=== PATIENT | male | born 1945 | race Caucasian/White ===

== ENCOUNTER 2023-03-18 05:11 | Inpatient (IN) | payer MEDICARE, BC ==
--- NOTE | 2023-03-18 05:32 | ED ---
SOB HPI - General Chief Complaint: Shortness of Breath Stated Complaint: Abdominal Pain Time Seen by Provider: 03/18/23 05:23 Source: patient Mode of arrival: EMS Limitations: no limitations - History of Present Illness Initial Comments: Patient 77-year-old man with history of coronary disease as well as moderate anemia. Most of the history is obtained from family who he lives with. They state that he had not been feeling very well area he had gone up to take a shower and then become much more acutely short of breath. That he has been somewhat short of breath and it was suspected that there was a contribution from anemia, his last hemoglobin was in the eights. The patient also reportedly has some coronary artery disease and having consultation related to possible coronary bypass. The patient had received fentanyl from EMS. MD Complaint: shortness of breath Onset/Timin -: hour(s) Consistency: constant Improves With: nothing Worsens With: nothing Treatments Prior to Arrival: oxygen, other - Related Data Home Medications Medication Instructions Recorded Confirmed Albuterol Inhaler [Ventolin Hfa 1 - 2 puff INHALATION RT-Q6H PRN 03/18/23 03/18/23 Inhaler] Aspirin 325 mg PO HS 03/18/23 03/18/23 Bumetanide [Bumex] 1 mg PO DAILY 03/18/23 03/18/23 Clopidogrel [Plavix] 75 mg PO DAILY 03/18/23 03/18/23 Doxycycline [Vibramycin] 100 mg PO BID 03/18/23 03/18/23 Ferrous Sulfate [Feosol] 325 mg PO DAILY 03/18/23 03/18/23 HYDROcodone/APAP 7.5-325MG [[place] 1 tab PO Q6HR PRN 03/18/23 03/18/23 7.5-325] Isosorbide Mononitrate ER [Imdur] 30 mg PO DAILY 03/18/23 03/18/23 Metoprolol Succinate [Toprol XL] 50 mg PO HS 03/18/23 03/18/23 Multivitamins, Thera [Multivitamin 1 tab PO HS 03/18/23 03/18/23 (formulary)] [place]-3/Dha/Epa/Fish Oil [Fish Oil 1 cap PO BID 03/18/23 03/18/23 1,000 mg Softgel] Rosuvastatin [Crestor] 10 mg PO HS 03/18/23 03/18/23 Spironolactone 25 mg PO DAILY 03/18/23 03/18/23 Ubidecarenone [Co Q-10] 300 mg PO DAILY 03/18/23 03/18/23 glipiZIDE XL [Glucotrol Xl] 5 mg PO HS 03/18/23 03/18/23 metFORMIN HCL [Glucophage] 500 mg PO HS 03/18/23 03/18/23 Allergies Allergy/AdvReac Type Severity Reaction Status Date / Time Penicillins Allergy Rash/Hives Verified 03/18/23 06:40 Review of Systems ROS Statement: Those systems with pertinent positive or pertinent negative responses have been documented in the HPI. ROS Other: All systems not noted in ROS Statement are negative. Past Medical History Past Medical History: Unable to Obtain, GI Bleed History of Any Multi-Drug Resistant Organisms: None Reported Past Surgical History: Unable to Obtain Past Psychological History: No Psychological Hx Reported Smoking Status: Current some day smoker Past Alcohol Use History: None Reported Past Drug Use History: None Reported General Exam Limitations: no limitations General appearance: alert, in distress Head exam: Present: atraumatic, normocephalic Eye exam: Present: normal appearance Respiratory exam: Present: respiratory distress, accessory muscle use. Absent: wheezes, rales, rhonchi, stridor, decreased breath sounds Cardiovascular Exam: Present: regular rate, normal rhythm, normal heart sounds. Absent: systolic murmur, diastolic murmur, rubs, gallop GI/Abdominal exam: Present: soft. Absent: distended, tenderness, guarding, rebound, rigid, mass Extremities exam: Present: normal inspection, normal capillary refill. Absent: pedal edema, calf tenderness Neurological exam: Present: alert Skin exam: Present: warm, dry, intact, pallor. Absent: rash Course Vital Signs 03/18/23 03/18/23 03/18/23 05:17 05:23 05:29 Temperature 96.9 F L Pulse Rate 99 Respiratory 30 H 28 H Rate Blood Pressure 107/91 O2 Sat by Pulse 95 91 L Oximetry Fraction of Inspired Oxygen (FIO2) 03/18/23 03/18/23 03/18/23 05:30 05:35 05:40 Temperature Pulse Rate 99 98 Respiratory 34 H 30 H Rate Blood Pressure 112/72 115/82 O2 Sat by Pulse 91 L 68 L Oximetry Fraction of 100 Inspired Oxygen (FIO2) 03/18/23 03/18/23 03/18/23 05:50 06:05 06:07 Temperature Pulse Rate 102 H Respiratory 34 H 38 H 36 H Rate Blood Pressure 109/50 O2 Sat by Pulse 50 L Oximetry Fraction of Inspired Oxygen (FIO2) 03/18/23 03/18/23 03/18/23 06:09 06:30 06:35 Temperature Pulse Rate 93 90 Respiratory 38 H 17 18 Rate Blood Pressure 113/65 97/60 O2 Sat by Pulse Oximetry Fraction of 100 Inspired Oxygen (FIO2) 03/18/23 03/18/23 03/18/23 06:40 06:45 06:50 Temperature 95.4 F L 96.6 F L 97.2 F L Pulse Rate 85 90 88 Respiratory 16 17 17 Rate Blood Pressure 73/29 102/38 94/36 O2 Sat by Pulse Oximetry Fraction of Inspired Oxygen (FIO2) 03/18/23 03/18/23 03/18/23 07:00 07:15 07:29 Temperature 97.3 F L Pulse Rate 86 82 Respiratory 17 17 Rate Blood Pressure 90/41 98/25 O2 Sat by Pulse Oximetry Fraction of 100 Inspired Oxygen (FIO2) 03/18/23 03/18/23 03/18/23 07:35 07:40 08:11 Temperature Pulse Rate 87 86 Respiratory 18 22 Rate Blood Pressure 85/25 79/47 O2 Sat by Pulse Oximetry Fraction of 100 Inspired Oxygen (FIO2) 03/18/23 03/18/23 03/18/23 08:20 08:30 08:35 Temperature Pulse Rate 87 84 76 Respiratory 22 21 22 Rate Blood Pressure 97/54 97/54 82/37 O2 Sat by Pulse 53 L 60 L 54 L Oximetry Fraction of Inspired Oxygen (FIO2) 03/18/23 03/18/23 03/18/23 08:37 08:40 08:45 Temperature Pulse Rate 82 77 86 Respiratory 18 20 20 Rate Blood Pressure 82/37 82/37 81/42 O2 Sat by Pulse 58 L 83 L 65 L Oximetry Fraction of 60 Inspired Oxygen (FIO2) 03/18/23 03/18/23 03/18/23 08:55 09:00 09:02 Temperature 95.9 F L Pulse Rate 85 82 Respiratory 20 20 Rate Blood Pressure 82/48 84/52 O2 Sat by Pulse 79 L 76 L Oximetry Fraction of Inspired Oxygen (FIO2) 03/18/23 03/18/23 03/18/23 09:05 09:15 09:20 Temperature Pulse Rate 80 82 85 Respiratory 18 19 19 Rate Blood Pressure 91/28 96/37 90/35 O2 Sat by Pulse 75 L 78 L Oximetry Fraction of Inspired Oxygen (FIO2) 03/18/23 03/18/23 03/18/23 09:30 09:45 10:15 Temperature Pulse Rate 88 87 89 Respiratory 18 18 19 Rate Blood Pressure 90/35 102/33 106/39 O2 Sat by Pulse 74 L 74 L 72 L Oximetry Fraction of Inspired Oxygen (FIO2) 03/18/23 10:35 Temperature Pulse Rate Respiratory Rate Blood Pressure O2 Sat by Pulse Oximetry Fraction of 60 Inspired Oxygen (FIO2) - Reevaluation(s) Reevaluation #1: 03/18/23 08:59 I phoned the patient's primary care clinic (Dr. Alonso Mishra) at [phone] and they stated they would fax an ECG if one is available. Procedures - Central Line Placement Right Femoral Consent Obtained: verbal consent (From the patient's family) Patient Placed on Monitor/Pulse Ox: Yes MD Prep: mask, gown, gloves Central Line Prep: Chlorhexidine scrub Local Anesthesia Used: Lidocaine 1% Ultrasound Used for Placement: Yes Central Line Lumen Inserted: triple Central Line Position: good blood return, all ports aspirated, flushed, capped, sutured in place with 3-0 nylon Dressing Applied: Tegaderm Patient Tolerated Procedure: well, no complications Complications: none - Intubation Sedative: Etomidate Paralytic: Succinylcholine Laryngoscope: Melissa Size: 3 Assist Device Used: fiber optic device ET Tube Size: 8 Tube Secured Depth (cm): 25 Tube Secured Location: lips Tube Placement Confirmation: visualized tube passing through cords, equal breath sounds bilaterally, no breath sounds over epigastrium, confirmation by capnometry Patient Tolerated Procedure: well Intubation Complications: none Medical Decision Making - Medical Decision Making This patient is 77-year-old man brought for worsening respiratory status at home. Initially the patient is not able to provide much history due to what appears to be acute delirium and dyspnea. The patient's family subsequently arrived and stated that he over the past 3 or 4 days has stopped taking much by mouth. They state that he has lost his appetite and nothing tastes good to him. He has subsequently become more short of breath tonight resulting in him calling an ambulance. They provided history that the patient is currently having workup for probable CABG through [facility]. The patient continued to be very tachypnea And was tiring and to reduce work of breathing the family consented to intubation. See the procedure note. The patient following intubation then became hypotensive and after discussion they did consent for central line placement to facilitate fluids and pressors. Case discussed with admitting physician and with elderly sitter and with the naval inspector and their treatment recommendations are incorporated. Was pt. sent in by a medical professional or institution (, PA, DIGITAL RESEARCH ANALYST, urgent care, hospital, or longterm...) When possible be specific @ -[No] Did you speak to anyone other than the patient for history (EMS, parent, family, police, friend...)? What history was obtained from this source @ -[He has family did give history as well as EMS Did you review nursing and triage notes (agree or disagree)? Why? @ -[I reviewed and agree with nursing and triage notes] Were old charts reviewed (outside hosp., previous admission, EMS record, old EKG, old radiological studies, urgent care reports/EKG's, longterm records)? Report findings @ -[No old charts were reviewed] Differential Diagnosis (chest pain, altered mental status, abdominal pain women, abdominal pain men, vaginal bleeding, weakness, fever, dyspnea, syncope, headache, dizziness, GI bleed, back pain, seizure, CVA, palpatations, mental health, musculoskeletal)? @ -[Differential Dyspnea: Coronary syndrome, arrhythmia, tamponade, asthma, COPD, pulmonary embolism, pneumonia, pneumothorax, pulmonary effusion, anaphylaxis, diabetic ketoacidosis, flailed chest, pulmonary contusion, diaphragmatic rupture, anemia, neuromuscular, this is not meant to be an all-inclusive list. EKG interpreted by me (3pts min.). @ -[I interpreted As above] X-rays interpreted by me (1pt min.). @ -[I interpreted as above CT interpreted by me (1pt min.). @ -[None done] U/S interpreted by me (1pt. min.). @ -[None done] What testing was considered but not performed or refused? (CT, X-rays, U/S, labs)? Why? @ -[None] What meds were considered but not given or refused? Why? @ -[None] Did you discuss the management of the patient with other professionals (professionals i.e. , PA, DIGITAL RESEARCH ANALYST, lab, RT, psych nurse, high school social studies teacher, commercial lease administrator, teacher, disability hearing officer, skilled nursing case manager)? Give summary @ -[This case was discussed with the admitting service and with specialists as above Was smoking cessation discussed for >3mins.? @ -[No] Was critical care preformed (if so, how long)? @ -[Yes 50 minutes Were there social determinants of health that impacted care today? How? (Homelessness, low income, unemployed, alcoholism, drug addiction, transportation, low edu. Level, literacy, decrease access to med. care, senior living, rehab)? @ -[No] Was there de-escalation of care discussed even if they declined (Discuss DNR or withdrawal of care, Hospice)? DNR status @ -[No] What co-morbidities impacted this encounter? (DM, HTN, Smoking, COPD, CAD, Cancer, CVA, ARF, Chemo, Hep., AIDS, mental health diagnosis, sleep apnea, morbid obesity)? @ -[None] Was patient admitted / discharged? Hospital course, mention meds given and route, prescriptions, significant lab abnormalities, going to OR and other pertinent info. @ -[See above Undiagnosed new problem with uncertain prognosis? @ -[No] Drug Therapy requiring intensive monitoring for toxicity (Heparin, Nitro, Insulin, Cardizem)? @ -[No] Were any procedures done? @ -[No] Diagnosis/symptom? @ -[COVID-19 infection Acute respiratory failure Anemia Metabolic acidosis Acute kidney injury Acute, or Chronic, or Acute on Chronic? @ -[Acute Uncomplicated (without systemic symptoms) or Complicated (systemic symptoms)? @ -[Complicated by Dyspnea and delirium Side effects of treatment? @ -[No] Exacerbation, Progression, or Severe Exacerbation? @ -[No] Poses a threat to life or bodily function? How? (Chest pain, [place], [place], pneumonia, PE, COPD, DKA, ARF, appy, cholecystitis, CVA, Diverticulitis, Homicidal, Suicidal, threat to staff... and all critical care pts) @ -[Yes there is risk of morbidity and mortality associated with respiratory failure - Lab Data Result diagrams: 03/19/23 00:50 03/19/23 00:50 Lab Results 03/18/23 03/18/23 03/18/23 Range/Units 05:25 05:25 05:25 WBC 18.8 H (3.8-10.6) k/uL RBC 2.13 L (4.30-5.90) m/uL Hgb 8.0 L (13.0-17.5) gm/dL Hct 26.9 L (39.0-53.0) % MCV 126.3 H (80.0-100.0) fL MCH 37.6 H (25.0-35.0) pg MCHC 29.8 L (31.0-37.0) g/dL RDW 16.8 H (11.5-15.5) % Plt Count 632 H (150-450) k/uL MPV 10.5 Neutrophils % (Manual) 68 % Band Neuts % (Manual) 2 % Lymphocytes % (Manual) 25 % Monocytes % (Manual) 5 % Neutrophils # (Manual) 13.10 H (1.3-7.7) k/uL Lymphocytes # (Manual) 4.70 (1.0-4.8) k/uL Monocytes # (Manual) 0.94 (0-1.0) k/uL Nucleated RBCs 0 (0-0) /100 WBC Polychromasia Present Hypochromasia Marked Anisocytosis Slight Macrocytosis Marked A PT 12.9 H (10.0-12.5) sec INR 1.2 H (<1.2) APTT 19.7 L (22.0-30.0) sec Sodium 137 (137-145) mmol/L Potassium 5.2 H (3.5-5.1) mmol/L Chloride 100 (98-107) mmol/L Carbon Dioxide <5 L* (22-30) mmol/L Anion Gap mmol/L BUN 30 H (9-20) mg/dL Creatinine 2.16 H (0.66-1.25) mg/dL Est GFR (CKD-EPI)AfAm 33 (>60 ml/min/1.73 sqM) Est GFR (CKD-EPI)NonAf 28 (>60 ml/min/1.73 sqM) Glucose 340 H (74-99) mg/dL Lactic Ac Sepsis Rflx Plasma Lactic Acid Wilber (0.7-2.0) mmol/L Calcium 9.7 (8.4-10.2) mg/dL Total Bilirubin 0.9 (0.2-1.3) mg/dL AST 107 H (17-59) U/L ALT 71 H (4-49) U/L Alkaline Phosphatase 59 (38-126) U/L Troponin I (0.000-0.034) ng/mL NT-Pro-B Natriuret Pep 54272 pg/mL Total Protein 6.4 (6.3-8.2) g/dL Albumin 4.0 (3.5-5.0) g/dL Influenza Type A (PCR) (Not Detectd) Influenza Type B (PCR) (Not Detectd) RSV (PCR) (Not Detectd) SARS-CoV-2 (PCR) (Not Detectd) Blood Type Blood Type Confirm Blood Type Recheck Bld Type Recheck Status Antibody Screen Crossmatch Spec Expiration Date 03/18/23 03/18/23 03/18/23 Range/Units 05:25 05:25 05:25 WBC (3.8-10.6) k/uL RBC (4.30-5.90) m/uL Hgb (13.0-17.5) gm/dL Hct (39.0-53.0) % MCV (80.0-100.0) fL MCH (25.0-35.0) pg MCHC (31.0-37.0) g/dL RDW (11.5-15.5) % Plt Count (150-450) k/uL MPV Neutrophils % (Manual) % Band Neuts % (Manual) % Lymphocytes % (Manual) % Monocytes % (Manual) % Neutrophils # (Manual) (1.3-7.7) k/uL Lymphocytes # (Manual) (1.0-4.8) k/uL Monocytes # (Manual) (0-1.0) k/uL Nucleated RBCs (0-0) /100 WBC Polychromasia Hypochromasia Anisocytosis Macrocytosis PT (10.0-12.5) sec INR (<1.2) APTT (22.0-30.0) sec Sodium (137-145) mmol/L Potassium (3.5-5.1) mmol/L Chloride (98-107) mmol/L Carbon Dioxide (22-30) mmol/L Anion Gap mmol/L BUN (9-20) mg/dL Creatinine (0.66-1.25) mg/dL Est GFR (CKD-EPI)AfAm (>60 ml/min/1.73 sqM) Est GFR (CKD-EPI)NonAf (>60 ml/min/1.73 sqM) Glucose (74-99) mg/dL Lactic Ac Sepsis Rflx Plasma Lactic Acid Wil[place] 19.6 H* (0.7-2.0) mmol/L Calcium (8.4-10.2) mg/dL Total Bilirubin (0.2-1.3) mg/dL AST (17-59) U/L ALT (4-49) U/L Alkaline Phosphatase (38-126) U/L Troponin I 1.890 H* (0.000-0.034) ng/mL NT-Pro-B Natriuret Pep pg/mL Total Protein (6.3-8.2) g/dL Albumin (3.5-5.0) g/dL Influenza Type A (PCR) Not Detected (Not Detectd) Influenza Type B (PCR) Not Detected (Not Detectd) RSV (PCR) Not Detected (Not Detectd) SARS-CoV-2 (PCR) Detected A (Not Detectd) Blood Type Blood Type Confirm Blood Type Recheck Bld Type Recheck Status Antibody Screen Crossmatch Spec Expiration Date 03/18/23 03/18/23 03/18/23 Range/Units 05:25 05:30 06:17 WBC (3.8-10.6) k/uL RBC (4.30-5.90) m/uL Hgb (13.0-17.5) gm/dL Hct (39.0-53.0) % MCV (80.0-100.0) fL MCH (25.0-35.0) pg MCHC (31.0-37.0) g/dL RDW (11.5-15.5) % Plt Count (150-450) k/uL MPV Neutrophils % (Manual) % Band Neuts % (Manual) % Lymphocytes % (Manual) % Monocytes % (Manual) % Neutrophils # (Manual) (1.3-7.7) k/uL Lymphocytes # (Manual) (1.0-4.8) k/uL Monocytes # (Manual) (0-1.0) k/uL Nucleated RBCs (0-0) /100 WBC Polychromasia Hypochromasia Anisocytosis Macrocytosis PT (10.0-12.5) sec INR (<1.2) APTT (22.0-30.0) sec Sodium (137-145) mmol/L Potassium (3.5-5.1) mmol/L Chloride (98-107) mmol/L Carbon Dioxide (22-30) mmol/L Anion Gap mmol/L BUN (9-20) mg/dL Creatinine (0.66-1.25) mg/dL Est GFR (CKD-EPI)AfAm (>60 ml/min/1.73 sqM) Est GFR (CKD-EPI)NonAf (>60 ml/min/1.73 sqM) Glucose (74-99) mg/dL Lactic Ac Sepsis Rflx Y Plasma Lactic Acid Wilber (0.7-2.0) mmol/L Calcium (8.4-10.2) mg/dL Total Bilirubin (0.2-1.3) mg/dL AST (17-59) U/L ALT (4-49) U/L Alkaline Phosphatase (38-126) U/L Troponin I (0.000-0.034) ng/mL NT-Pro-B Natriuret Pep pg/mL Total Protein (6.3-8.2) g/dL Albumin (3.5-5.0) g/dL Influenza Type A (PCR) (Not Detectd) Influenza Type B (PCR) (Not Detectd) RSV (PCR) (Not Detectd) SARS-CoV-2 (PCR) (Not Detectd) Blood Type A Positive Blood Type Confirm A Positive Blood Type Recheck No Previous Record Bld Type Recheck Status CABO Indicated Antibody Screen NEGATIVE Crossmatch See Detail Spec Expiration Date 03/21/20232329 - EKG Data -: EKG Interpreted by Me EKG shows normal: sinus rhythm, axis (Normal), intervals (ER her vital 133 ms, QTC 428 ms, both normal. QRS duration 134 ms, prolonged), QRS complexes (There is an intraventricular conduction delay.) Rate: normal (Rate 98 bpm) Critical Care Time Critical Care Time: Yes (50 minutes) Disposition Clinical Impression: COVID-19, Sepsis, Lactic acidosis, NSTEMI (non-ST elevated myocardial infarction) Disposition: ADMITTED IP TO THIS HOSP Condition: Critical Is patient prescribed a controlled substance at d/c from ED?: No
[2023-03-18 05:37] LABS: Anisocytosis Slight; HCT 26.9 % (39.0-53.0); Hypochromasia Marked; MCH 37.6 pg (25.0-35.0); MCHC 29.8 g/dL (31.0-37.0); MCV 126.3 fL (80.0-100.0); Macrocytosis Marked; Mean Platelet Volume 10.5; Platelet Count 632 k/uL (150-450); RBC 2.13 m/uL (4.30-5.90); RDW 16.8 % (11.5-15.5); WBC 18.8 k/uL (3.8-10.6)
[2023-03-18] MEDS ORDERED: LORazepam 2 MG/ML INJ IV STA (05:40)
[2023-03-18 05:47] LABS: ALT 71 U/L (4-49); AST 107 U/L (17-59); African American GFR (CKD) 33 (>60 ml/min/1.73 sqM); Alkaline Phosphatase 59 U/L (38-126); Blood Urea Nitrogen 30 mg/dL (9-20); Calcium 9.7 mg/dL (8.4-10.2); Chloride 100 mmol/L (98-107); Glucose 340 mg/dL (74-99); Non-African American GFR(CKD) 28 (>60 ml/min/1.73 sqM); Potassium 5.2 mmol/L (3.5-5.1); Sodium 137 mmol/L (137-145); Total Bilirubin 0.9 mg/dL (0.2-1.3); Total Protein 6.4 g/dL (6.3-8.2)
[2023-03-18 05:57] LABS: NT-Pro-B-Type Natriuretic Pept 15300 pg/mL
[2023-03-18] MEDS: NALOXONE 0.4 MG/ML 1 ML VIAL IVP PRN ×3 (06:05→06:09)
[2023-03-18 06:18] LABS: Carbon Dioxide <5 mmol/L (22-30)
[2023-03-18] MEDS ORDERED: SUCCINYLCHOLINE CHLORIDE 200 MG/10 ML VIAL IV STA (06:19)
[2023-03-18] MEDS ORDERED: ETOMIDATE 2 MG/ML 10 ML VIAL IVP STA (06:19)
[2023-03-18 06:26] LABS: INR 1.2 (<1.2); Prothrombin Time 12.9 sec (10.0-12.5)
[2023-03-18] MEDS ORDERED: INSULIN REGULAR 100 UNIT/ML VIAL (IV) SQ STA (06:43)
[2023-03-18] MEDS ORDERED: NOREPINEPHRINE 4 MG in SODIUM CHLORIDE 0.9% 250 ML IV ONE (06:44)
[2023-03-18 06:45] LABS: Partial Thromboplastin Time 19.7 sec (22.0-30.0)
[2023-03-18] MEDS ORDERED: SODIUM CHLORIDE 0.9% 2,000 ML IV ONE (07:00)
--- NOTE | 2023-03-18 07:17 | XR ---
EXAM: XR Chest, 1 View CLINICAL HISTORY: ITS.REASON XR Reason: difficulty breathing TECHNIQUE: Frontal view of the chest. COMPARISON: No relevant prior studies available. FINDINGS: Lungs: Patchy airspace opacities throughout the lungs bilaterally. Pleural space: Unremarkable. No pneumothorax. Heart: Prominent cardiomegaly. Mediastinum: Normal mediastinal contour. Bones/joints: Grossly Unremarkable. Tubes, lines and devices: Endotracheal tube tip approximately 4 cm above the zurdo, satisfactory position. Enteric feeding tube terminates below the infra aspect of the film. IMPRESSION: Endotracheal tube tip approximately 4 cm above the zurdo, satisfactory position. Patchy airspace opacities throughout the lungs bilaterally. Correlation for acute infection and follow-up to resolution recommended.
[2023-03-18] MEDS: NOREPINEPHRINE 32 MG in SODIUM CHLORIDE 0.9% 218 ML IV SCH ×2 (07:18→17:09)
--- NOTE | 2023-03-18 07:32 | XR ---
EXAM: XR Chest, 1 View CLINICAL HISTORY: ITS.REASON XR Reason: intubation TECHNIQUE: Frontal view of the chest. COMPARISON: No relevant prior studies available. FINDINGS: Lungs: Patchy lower lobe airspace opacities. Pleural space: Unremarkable. No pneumothorax. Heart: Moderate cardiomegaly. Mediastinum: Normal mediastinal contour. Bones/joints: Grossly Unremarkable. Tubes, lines and devices: Endotracheal tube approximately 4.5 cm above the zurdo, satisfactory position. Enteric feeding tube terminates below the inferior aspect of the film. IMPRESSION: Endotracheal tube approximately 4.5 cm above the zurdo, satisfactory position. Moderate cardiomegaly and patchy lower lobe airspace opacities. Unclear whether related to infection, edema or inflammation. Clinical correlation and follow-up to resolution recommended.
[2023-03-18] MEDS ORDERED: HEPARIN SODIUM 1,000 UN/ML (10ML VL) IV PRN (08:20)
[2023-03-18] MEDS ORDERED: HEPARIN SODIUM 1,000 UN/ML (10ML VL) IV ONE (08:20)
[2023-03-18] MEDS ORDERED: HEPARIN SOD,PORK IN 0.45% NACL 25,000 UNIT in 0.45% NACL 1 250ML.BAG IV SCH (08:30)
--- NOTE | 2023-03-18 08:32 | CT ---
EXAMINATION TYPE: CT brain wo con CT DLP: 1271.4 mGycm, Automated exposure control for dose reduction was used. DATE OF EXAM: 03/18/2023 8:15 AM COMPARISON: MRI brain 09/29/2013. CLINICAL INDICATION:Male, 77 years old with history of altered mental status, AMS TECHNIQUE: Brain: Axial CT images of the brain were obtained with coronal and sagittal reformats created and rev iewed. Contrast used: None. Oral contrast used: None. FINDINGS: Extra-axial spaces: No abnormal extra-axial fluid collections. Ventricular system: Appear dilated in proportion to the degree of cerebral atrophy. Cerebral parenchyma: No increased attenuation to suggest acute intraparenchymal hemorrhage. The gra y-white matter interface appears maintained. Mild/moderate generalized brain atrophy. Scattered hyp oattenuating areas are seen within the cerebral white matter, nonspecific but most often seen with ch ronic microvascular ischemic changes; mild/moderate in degree. Small vague area of hypoattenuation i nvolving the right parietal cortex and subcortical white matter corresponds to previous T2 FLAIR sign al abnormality, suggestive of remote infarct/insult. Cerebellum: No acute abnormality. Mass effect: No evidence of mass effect or midline shift. Intracranial vasculature: Atherosclerotic calcifications of the larger arteries near the skull base. Soft tissues: Normal. Visualized orbits: Orbital contents appear grossly intact. Senile calcific scleral plaques are pres ent. There has likely been previous lens surgery on the left. No current findings to correlate with the small enhancing lesion lateral to the left globe seen on prior MRI. Calvarium/osseous structures: No evidence of calvarial fracture. Paranasal sinuses and mastoid air cells: Moderate to severe mucosal thickening of the maxillary sinus es, with probably superimposed fluid on the right more than left. Scattered mucosal thickening of the ethmoid air cells. Frontal sinuses and mastoid air cells are clear. MRI is more sensitive for detecting acute processes such as infarct, and may be considered if clinica lly warranted. IMPRESSION: 1. No CT evidence of an acute intracranial abnormality. 2. Atrophy and chronic microvascular ischemic white matter changes. Remote small infarct right parie sharda lobe. 3. Paranasal sinus disease, could be acute on chronic.
[2023-03-18 08:35] LABS: ABG Base Excess -15.8 mmol/L; ABG HCO3 13 mmol/L (21-25); ABG PCO2 34 mmHg (35-45); ABG PO2 >400 mmHg (83-108); ABG TCO2 14 mmol/L (19-24)
[2023-03-18 08:39] LABS: ABG PH 7.18 (7.35-7.45)
[2023-03-18] MEDS: LACTATED RINGERS 1,000 ML IV SCH ×3 (08:41→20:59)
[2023-03-18] MEDS ORDERED: SODIUM CHLORIDE 0.9% 1,000 ML IV ONE (08:55)
[2023-03-18] MEDS ORDERED: FAMOTIDINE 20 MG/2 ML VIAL IV SCH (09:00)
[2023-03-18] MEDS ORDERED: SODIUM BICARB 8.4% 50 ML SYR (1 MEQ/ML) IV STA ×3 (09:18→20:32)
[2023-03-18] MEDS ORDERED: VASOPRESSIN 60 UNIT in SODIUM CHLORIDE 0.9% 150 ML IV SCH (09:45)
[2023-03-18 09:51] LABS: Band Neutrophils % 2 %; Monocytes # (M) 0.94 k/uL (0-1.0); Neutrophils % (M) 68 %; Nucleated Red Blood Cells 0 /100 WBC (0-0); Total Cells Counted 100
[2023-03-18 09:53] LABS: Polychromasia Present
[2023-03-18 10:51] LABS: Glucose,Whole Blood 99 mg/dL (70-110)
--- NOTE | 2023-03-18 10:55 | P.HPIM ---
History of Present Illness This is a pleasant 77 years old male with unknown past medical history. Presents because of severe shortness of breath with some discomfort and pain in his old but he felt like it cramps, after he was trying to take a shower Further information is limited because of the patient condition On admission patient was hypoxic and has to be intubated. His saturation was 91% on 4 L oxygen and admissions with a breathing rate 30-34/m Also patient became hypotensive after intubation and central line placed with fluids provided. Also patient has to be placed on pressors. First Levophed and currently vasopressin is going to be added. Labs were reviewed WBCs elevated 18,000, hemoglobin 8, platelets 632k Creatinine elevated 2.1 PH was 7.1, pCO2 low 14, HCO3 low 13 Lactic acid elevated 19.6 Troponin is elevated at 1.8 [place] 98[address]. Covid is positive,Influenza A and type B, RSV, are undetected Chest x-ray showing bilateral opacity suspicious for pneumonia CT of the brain is negative for acute process. EKG showing normal sinus rhythm at [address] depression and V4-V5 and the 23 and aVF Family were at bedside and their questions were answered to their satisfaction Review of Systems ROS unobtainable: due to endotracheal tube, due to mental status Past Medical History Past Medical History: Unable to Obtain, GI Bleed History of Any Multi-Drug Resistant Organisms: None Reported Past Surgical History: Unable to Obtain Past Psychological History: No Psychological Hx Reported Smoking Status: Current some day smoker Past Alcohol Use History: None Reported Past Drug Use History: None Reported Medications and Allergies Home Medications Medication Instructions Recorded Confirmed Type Albuterol Inhaler [Ventolin Hfa 1 - 2 puff INHALATION RT-Q6H PRN 03/18/23 03/18/23 History Inhaler] Aspirin 325 mg PO HS 03/18/23 03/18/23 History Bumetanide [Bumex] 1 mg PO DAILY 03/18/23 03/18/23 History Clopidogrel [Plavix] 75 mg PO DAILY 03/18/23 03/18/23 History Doxycycline [Vibramycin] 100 mg PO BID 03/18/23 03/18/23 History Ferrous Sulfate [Feosol] 325 mg PO DAILY 03/18/23 03/18/23 History HYDROcodone/APAP 7.5-325MG [[place] 1 tab PO Q6HR PRN 03/18/23 03/18/23 History 7.5-325] Isosorbide Mononitrate ER [Imdur] 30 mg PO DAILY 03/18/23 03/18/23 History Metoprolol Succinate [Toprol XL] 50 mg PO HS 03/18/23 03/18/23 History Multivitamins, Thera [Multivitamin 1 tab PO HS 03/18/23 03/18/23 History (formulary)] [place]-3/Dha/Epa/Fish Oil [Fish Oil 1 cap PO BID 03/18/23 03/18/23 History 1,000 mg Softgel] Rosuvastatin [Crestor] 10 mg PO HS 03/18/23 03/18/23 History Spironolactone 25 mg PO DAILY 03/18/23 03/18/23 History Ubidecarenone [Co Q-10] 300 mg PO DAILY 03/18/23 03/18/23 History glipiZIDE XL [Glucotrol Xl] 5 mg PO HS 03/18/23 03/18/23 History metFORMIN HCL [Glucophage] 500 mg PO HS 03/18/23 03/18/23 History Allergies Allergy/AdvReac Type Severity Reaction Status Date / Time Penicillins Allergy Rash/Hives Verified 03/18/23 06:40 Physical Exam Vitals: Vital Signs Temp Pulse Resp BP Pulse Ox FiO2 03/18/23 09:45 87 18 102/33 74 L 03/18/23 09:30 88 18 90/35 74 L 03/18/23 09:20 85 19 90/35 03/18/23 09:15 82 19 96/37 78 L 03/18/23 09:05 80 18 91/28 75 L 03/18/23 09:02 95.9 F L 03/18/23 09:00 82 20 84/52 76 L 03/18/23 08:55 85 20 82/48 79 L 03/18/23 08:45 86 20 81/42 65 L 03/18/23 08:40 77 20 82/37 83 L 60 03/18/23 08:37 82 18 82/37 58 L 03/18/23 08:35 76 22 82/37 54 L 03/18/23 08:30 84 21 97/54 60 L 03/18/23 08:20 87 22 97/54 53 L 03/18/23 08:11 100 03/18/23 07:40 86 22 79/47 03/18/23 07:35 87 18 85/25 03/18/23 07:29 100 03/18/23 07:15 97.3 F L 82 17 98/25 03/18/23 07:00 86 17 90/41 03/18/23 06:50 97.2 F L 88 17 94/36 03/18/23 06:45 96.6 F L 90 17 102/38 03/18/23 06:40 95.4 F L 85 16 73/29 03/18/23 06:37 100 03/18/23 06:35 90 18 97/60 03/18/23 06:30 93 17 113/65 100 03/18/23 06:09 38 H 03/18/23 06:07 36 H 03/18/23 06:05 38 H 03/18/23 05:50 102 H 34 H 109/50 50 L 03/18/23 05:40 98 30 H 115/82 68 L 03/18/23 05:35 100 03/18/23 05:30 99 34 H 112/72 91 L 03/18/23 05:29 91 L 03/18/23 05:23 28 H 03/18/23 05:17 96.9 F L 99 30 H 107/91 95 Intake and Output 03/17/23 03/18/23 03/18/23 22:59 06:59 14:59 Intake Total 3.604 68.186 Balance 3.604 68.186 Intake: Intake, IV Titration 3.604 68.186 Amount Norepinephrine 32 mg In 20.511 Sodium Chloride 0.9% 218 ml @ 0.03 MCG/KG/MIN 1. 244 mls/hr IV .Q24H [facility] Rx#:[id number] Norepinephrine 4 mg In 1.348 Sodium Chloride 0.9% 250 ml @ 0.03 MCG/KG/MIN 10. 11 mls/hr IV .Q24H [facility] Rx #:[id number] propofoL 1,000 mg In 2.256 47.675 Empty Bag 1 bag @ 15 MCG/ KG/MIN 7.961 mls/hr IV . [id number] [facility] Rx#:[id number] Other: Weight 88.451 kg -GENERAL: The patient is intubated and sedated HEENT: Pupils are round and equally reacting to light. EOMI. No scleral icterus. No conjunctival pallor. Normocephalic, atraumatic. No pharyngeal erythema. No thyromegaly. CARDIOVASCULAR: S1 and S2 present. No murmurs, rubs, or gallops. PULMONARY: Chest is clear to auscultation, no wheezing , no crackles. ABDOMEN: Soft, nontender, nondistended, normoactive bowel sounds. No palpable organomegaly. MUSCULOSKELETAL: No joint swelling or deformity. EXTREMITIES: No cyanosis, clubbing, or pedal edema. NEUROLOGICAL: Gross neurological examination did not reveal any focal deficits. SKIN: No rashes. no petechiae. Results CBC & Chem 7: 03/18/23 05:25 03/18/23 05:25 Labs: Abnormal Lab Results - Last 24 Hours (Table) 03/18/23 03/18/23 03/18/23 Range/Units 05:25 05:25 05:25 WBC 18.8 H (3.8-10.6) k/uL RBC 2.13 L (4.30-5.90) m/uL Hgb 8.0 L (13.0-17.5) gm/dL Hct 26.9 L (39.0-53.0) % MCV 126.3 H (80.0-100.0) fL MCH 37.6 H (25.0-35.0) pg MCHC 29.8 L (31.0-37.0) g/dL RDW 16.8 H (11.5-15.5) % Plt Count 632 H (150-450) k/uL Neutrophils # (Manual) 13.10 H (1.3-7.7) k/uL Macrocytosis Marked A PT 12.9 H (10.0-12.5) sec INR 1.2 H (<1.2) APTT 19.7 L (22.0-30.0) sec ABG pH (7.35-7.45) ABG pCO2 (35-45) mmHg ABG pO2 (83-108) mmHg ABG HCO3 (21-25) mmol/L ABG Total CO2 (19-24) mmol/L ABG O2 Saturation (94-97) % Potassium 5.2 H (3.5-5.1) mmol/L Carbon Dioxide <5 L* (22-30) mmol/L BUN 30 H (9-20) mg/dL Creatinine 2.16 H (0.66-1.25) mg/dL Glucose 340 H (74-99) mg/dL Plasma Lactic Acid Wilber (0.7-2.0) mmol/L AST 107 H (17-59) U/L ALT 71 H (4-49) U/L Troponin I (0.000-0.034) ng/mL SARS-CoV-2 (PCR) (Not Detectd) 03/18/23 03/18/23 03/18/23 Range/Units 05:25 05:25 05:25 WBC (3.8-10.6) k/uL RBC (4.30-5.90) m/uL Hgb (13.0-17.5) gm/dL Hct (39.0-53.0) % MCV (80.0-100.0) fL MCH (25.0-35.0) pg MCHC (31.0-37.0) g/dL RDW (11.5-15.5) % Plt Count (150-450) k/uL Neutrophils # (Manual) (1.3-7.7) k/uL Macrocytosis PT (10.0-12.5) sec INR (<1.2) APTT (22.0-30.0) sec ABG pH (7.35-7.45) ABG pCO2 (35-45) mmHg ABG pO2 (83-108) mmHg ABG HCO3 (21-25) mmol/L ABG Total CO2 (19-24) mmol/L ABG O2 Saturation (94-97) % Potassium (3.5-5.1) mmol/L Carbon Dioxide (22-30) mmol/L BUN (9-20) mg/dL Creatinine (0.66-1.25) mg/dL Glucose (74-99) mg/dL Plasma Lactic Acid Wilber 19.6 H* (0.7-2.0) mmol/L AST (17-59) U/L ALT (4-49) U/L Troponin I 1.890 H* (0.000-0.034) ng/mL SARS-CoV-2 (PCR) Detected A (Not Detectd) 03/18/23 03/18/23 Range/Units 08:30 09:24 WBC (3.8-10.6) k/uL RBC (4.30-5.90) m/uL Hgb (13.0-17.5) gm/dL Hct (39.0-53.0) % MCV (80.0-100.0) fL MCH (25.0-35.0) pg MCHC (31.0-37.0) g/dL RDW (11.5-15.5) % Plt Count (150-450) k/uL Neutrophils # (Manual) (1.3-7.7) k/uL Macrocytosis PT (10.0-12.5) sec INR (<1.2) APTT (22.0-30.0) sec ABG pH 7.18 L* (7.35-7.45) ABG pCO2 34 L (35-45) mmHg ABG pO2 >400 H (83-108) mmHg ABG HCO3 13 L (21-25) mmol/L ABG Total CO2 14 L (19-24) mmol/L ABG O2 Saturation 100.0 H (94-97) % Potassium (3.5-5.1) mmol/L Carbon Dioxide (22-30) mmol/L BUN (9-20) mg/dL Creatinine (0.66-1.25) mg/dL Glucose (74-99) mg/dL Plasma Lactic Acid Wilber 9.8 H* (0.7-2.0) mmol/L AST (17-59) U/L ALT (4-49) U/L Troponin I (0.000-0.034) ng/mL SARS-CoV-2 (PCR) (Not Detectd) Assessment and Plan Assessment: Acute hypoxic respiratory failure requiring intubation Low blood pressure and sharp, could be septic shock versus cardiogenic shock versus other Covid infection Possible superimposed pneumonia is suspected Acute metabolic acidosis with pH 7.1 Lactic acidemia and acidosis Acute kidney injury Plan: Continue with heparin drip Continue with mechanical ventilation Cardiology consult Pulmonary consult Check Pro-calcitonin Check inflammatory markers Continue with Pressors, Levophed and vasopressin Continue with Ringer lactate Labs and medication were reviewed.. Continue same treatment. Continue with symptomatic treatment. Monitor labs and vitals. DVT and GI prophylaxis. Further recommendations as per clinical course of the patient DVT prophylaxis: heparin GI Prophylaxis: Pepcid Prognosis is guarded
--- NOTE | 2023-03-18 11:31 | P.CNPUL ---
History of Present Illness Consult date: 03/18/23 Requesting physician: Ivan Grove Reason for consult: dyspnea, hypoxemia, other Chief complaint: Respiratory failure. History of present illness: Pulmonary consult dated 03/18/2023. 77-year-old male brought into the emergency department, by EMS, at 5:00 in the morning, on 03/18/2023. The patient apparently has a history of chronic anemia, and coronary disease, and apparently was going to have open heart surgery, at [facility]. According to family members, he had not been feeling well, and became much more acutely short of breath, when he apparently was going to take a shower. The patient was brought into the emergency department, to be evaluated, and because of a poor respiratory status, he was intubated, by the ER physician. We see him in the emergency department, and the patient will be transferred up to the intensive care unit. The patient is currently on volume assist control, rate 20, tidal volume 500, FiO2 60%, and PEEP of 5. Blood gases done on 100%, show pO2 greater than 400, pCO2 of 34, and a pH is 7.18. I ordered 2 ampules a sodium bicarbonate to be given in the ER. The patient's currently on propofol at 20 mcg/kg/m, and IV heparin via weightbase protocol. The patient's also getting lactated Ringer's at 130 mL an hour. The patient has received 3 l of fluid in the emergency department, and is currently on norepinephrine at 31 mcg/m. White count 18.8, hemoglobin 8, hematocrit 26.9, and platelet count 632,000. PT 12.9, INR 1.2. Sodium 137, potassium 5.2, chlorides 100, CO2 less than 5, BUN 30, and creatinine 2.16. Glucose 340. Initial lactic acid is 19.6, repeat is 9.8. Troponin is 1.890. N-terminal proBNP is 15,300. AST is 107, and ALT is 71. The patient did test positive for coronavirus. Chest x-ray in my opinion, is most consistent with CHF, although a pneumonia, cannot be excluded. Computed tomography scan of the brain, shows no acute abnormality. 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 Review of Systems REVIEW OF SYSTEMS: CONSTITUTIONAL: [Negative.] NEUROLOGIC: [ Negative.] HEENT: [ Negative.] CARDIAC: [Negative.] PULMONARY: Worsening shortness of breath. GI: [Negative.] : [Negative.] RHEUMATOLOGIC: [ Negative.] IMMUNOLOGIC: [ Negative.] ENDOCRINE: [Negative. ] DERMATOLOGIC: [Negative.] Past Medical History Past Medical History: Unable to Obtain, GI Bleed History of Any Multi-Drug Resistant Organisms: None Reported Past Surgical History: Unable to Obtain Past Psychological History: No Psychological Hx Reported Smoking Status: Current some day smoker Past Alcohol Use History: None Reported Past Drug Use History: None Reported Medications and Allergies Home Medications Medication Instructions Recorded Confirmed Type Albuterol Inhaler [Ventolin Hfa 1 - 2 puff INHALATION RT-Q6H PRN 03/18/23 03/18/23 History Inhaler] Aspirin 325 mg PO HS 03/18/23 03/18/23 History Bumetanide [Bumex] 1 mg PO DAILY 03/18/23 03/18/23 History Clopidogrel [Plavix] 75 mg PO DAILY 03/18/23 03/18/23 History Doxycycline [Vibramycin] 100 mg PO BID 03/18/23 03/18/23 History Ferrous Sulfate [Feosol] 325 mg PO DAILY 03/18/23 03/18/23 History HYDROcodone/APAP 7.5-325MG [[place] 1 tab PO Q6HR PRN 03/18/23 03/18/23 History 7.5-325] Isosorbide Mononitrate ER [Imdur] 30 mg PO DAILY 03/18/23 03/18/23 History Metoprolol Succinate [Toprol XL] 50 mg PO HS 03/18/23 03/18/23 History Multivitamins, Thera [Multivitamin 1 tab PO HS 03/18/23 03/18/23 History (formulary)] [place]-3/Dha/Epa/Fish Oil [Fish Oil 1 cap PO BID 03/18/23 03/18/23 History 1,000 mg Softgel] Rosuvastatin [Crestor] 10 mg PO HS 03/18/23 03/18/23 History Spironolactone 25 mg PO DAILY 03/18/23 03/18/23 History Ubidecarenone [Co Q-10] 300 mg PO DAILY 03/18/23 03/18/23 History glipiZIDE XL [Glucotrol Xl] 5 mg PO HS 03/18/23 03/18/23 History metFORMIN HCL [Glucophage] 500 mg PO HS 03/18/23 03/18/23 History Allergies Allergy/AdvReac Type Severity Reaction Status Date / Time Penicillins Allergy Rash/Hives Verified 03/18/23 06:40 Physical Exam Osteopathic Statement: *. No significant issues noted on an osteopathic structural exam other than those noted in the History and Physical/Consult. Vitals: Vital Signs Temp Pulse Resp BP Pulse Ox FiO2 03/18/23 10:15 89 19 106/39 72 L 03/18/23 09:45 87 18 102/33 74 L 03/18/23 09:30 88 18 90/35 74 L 03/18/23 09:20 85 19 90/35 03/18/23 09:15 82 19 96/37 78 L 03/18/23 09:05 80 18 91/28 75 L 03/18/23 09:02 95.9 F L 03/18/23 09:00 82 20 84/52 76 L 03/18/23 08:55 85 20 82/48 79 L 03/18/23 08:45 86 20 81/42 65 L 03/18/23 08:40 77 20 82/37 83 L 60 03/18/23 08:37 82 18 82/37 58 L 03/18/23 08:35 76 22 82/37 54 L 03/18/23 08:30 84 21 97/54 60 L 03/18/23 08:20 87 22 97/54 53 L 03/18/23 08:11 100 03/18/23 07:40 86 22 79/47 03/18/23 07:35 87 18 85/25 03/18/23 07:29 100 03/18/23 07:15 97.3 F L 82 17 98/25 03/18/23 07:00 86 17 90/41 03/18/23 06:50 97.2 F L 88 17 94/36 03/18/23 06:45 96.6 F L 90 17 102/38 03/18/23 06:40 95.4 F L 85 16 73/29 03/18/23 06:37 100 03/18/23 06:35 90 18 97/60 03/18/23 06:30 93 17 113/65 100 03/18/23 06:09 38 H 01/09/24 06:07 36 H 03/18/23 06:05 38 H 03/18/23 05:50 102 H 34 H 109/50 50 L 03/18/23 05:40 98 30 H 115/82 68 L 03/18/23 05:35 100 03/18/23 05:30 99 34 H 112/72 91 L 03/18/23 05:29 91 L 03/18/23 05:23 28 H 03/18/23 05:17 96.9 F L 99 30 H 107/91 95 Intake and Output 03/17/23 03/18/23 03/18/23 22:59 06:59 14:59 Intake Total 3.604 68.186 Balance 3.604 68.186 Intake: Intake, IV Titration 3.604 68.186 Amount Norepinephrine 32 mg In 20.511 Sodium Chloride 0.9% 218 ml @ 0.03 MCG/KG/MIN 1. 244 mls/hr IV .Q24H [facility] Rx#:[id number] Norepinephrine 4 mg In 1.348 Sodium Chloride 0.9% 250 ml @ 0.03 MCG/KG/MIN 10. 11 mls/hr IV .Q24H [facility] Rx #:[id number] propofoL 1,000 mg In 2.256 47.675 Empty Bag 1 bag @ 15 MCG/ KG/MIN 7.961 mls/hr IV . [id number] [facility] Rx#:[id number] Other: Weight 88.451 kg No acute distress, sedated, with an orally placed endotracheal tube, and NG tube. HEENT examination is grossly unremarkable. Neck supple. Full range of motion. No adenopathy thyromegaly or neck vein distention. Cardiovascular examination reveals regular rhythm rate. S1-S2 normal. No S3 or S4. No discernible murmur noted. Heart rate 89 bpm. Lungs reveal scattered rhonchi. No wheezes or crackles. Breath sounds equal bilaterally. Abdomen soft without bowel sounds. No masses or tenderness. Extremities are intact. No cyanosis clubbing or edema. Skin is without rash or lesion. Neurologic examination cannot be assessed. Results - Laboratory Findings CBC and BMP: 03/18/23 05:25 03/18/23 05:25 ABG ABG pH 7.18 (7.35-7.45) L* 03/18/23 08:30 ABG pCO2 34 mmHg (35-45) L 03/18/23 08:30 ABG pO2 >400 mmHg (83-108) H 03/18/23 08:30 ABG O2 Saturation 100.0 % (94-97) H 03/18/23 08:30 PT/INR, D-dimer PT 12.9 sec (10.0-12.5) H 03/18/23 05:25 INR 1.2 (<1.2) H 03/18/23 05:25 Abnormal lab findings: Abnormal Labs 03/18/23 03/18/23 03/18/23 05:25 05:25 05:25 WBC 18.8 H RBC 2.13 L Hgb 8.0 L Hct 26.9 L MCV 126.3 H MCH 37.6 H MCHC 29.8 L RDW 16.8 H Plt Count 632 H Neutrophils # (Manual) 13.10 H Macrocytosis Marked A PT 12.9 H INR 1.2 H APTT 19.7 L ABG pH ABG pCO2 ABG pO2 ABG HCO3 ABG Total CO2 ABG O2 Saturation Potassium 5.2 H Carbon Dioxide <5 L* BUN 30 H Creatinine 2.16 H Glucose 340 H Plasma Lactic Acid Wilber AST 107 H ALT 71 H Troponin I SARS-CoV-2 (PCR) 03/18/23 03/18/23 03/18/23 05:25 05:25 05:25 WBC RBC Hgb Hct MCV MCH MCHC RDW Plt Count Neutrophils # (Manual) Macrocytosis PT INR APTT ABG pH ABG pCO2 ABG pO2 ABG HCO3 ABG Total CO2 ABG O2 Saturation Potassium Carbon Dioxide BUN Creatinine Glucose Plasma Lactic Acid Wilber 19.6 H* AST ALT Troponin I 1.890 H* SARS-CoV-2 (PCR) Detected A 03/18/23 03/18/23 08:30 09:24 WBC RBC Hgb Hct MCV MCH MCHC RDW Plt Count Neutrophils # (Manual) Macrocytosis PT INR APTT ABG pH 7.18 L* ABG pCO2 34 L ABG pO2 >400 H ABG HCO3 13 L ABG Total CO2 14 L ABG O2 Saturation 100.0 H Potassium Carbon Dioxide BUN Creatinine Glucose Plasma Lactic Acid Wilber 9.8 H* AST ALT Troponin I SARS-CoV-2 (PCR) - Diagnostic Findings Chest x-ray: image reviewed Assessment and Plan Assessment: Acute hypoxemic respiratory failure, requiring intubation, and mechanical ventilation, on 03/18/2023, likely result of CHF, and/or pneumonia. History of coronary artery disease, with anticipated bypass surgery, to be done at [facility]. Severe anion gap metabolic acidosis, secondary to lactic acidemia. History of chronic anemia. Rule out ATN, secondary to hypotension. Rule out non-ST segment elevation myocardial infarction. Severe lactic acidosis. History of diabetes mellitus. History of carotid artery stenosis. History of hyperlipidemia. History of hypertension. Plan: Plan dated 03/18/2023. The patient will be transferred to the intensive care unit. Additional recommendations and suggestions are forthcoming. We will add the ventilator bundle orders, and the ICU admission orders, to the patient's chart. I did have the opportunity to speak to the patient's daughter at the bedside. She did do some additional history. A femoral triple-lumen catheter was placed. The patient is currently on Rocephin. Additional recommendations and suggestions are forthcoming. The patient is started on vasopressin, for additional blood pressure support. Labs, x-rays, medications are reviewed. I did speak to the patient's daughter about placing an arterial line, and changing out the femoral vein triple lumen catheter. Time with Patient: Greater than 30
[2023-03-18 13:31] LABS: Anisocytosis Slight; HCT 27.2 % (39.0-53.0); HGB 8.5 gm/dL (13.0-17.5); Hypochromasia Marked; MCH 38.6 pg (25.0-35.0); MCHC 31.3 g/dL (31.0-37.0); MCV 123.3 fL (80.0-100.0); Macrocytosis Marked; Mean Platelet Volume 10.7; RDW 16.8 % (11.5-15.5); WBC 28.3 k/uL (3.8-10.6)
[2023-03-18 14:25] LABS: Lymphocytes # (M) 2.55 k/uL (1.0-4.8); Monocytes # (M) 2.83 k/uL (0-1.0); Neutrophils # (M) 22.92 k/uL (1.3-7.7); Neutrophils % (M) 81 %; Nucleated Red Blood Cells 0 /100 WBC (0-0); Polychromasia Present; Total Cells Counted 100
[2023-03-18 14:27] LABS: Platelet Count 545 k/uL (150-450)
--- NOTE | 2023-03-18 16:26 | CA ---
Transthoracic Echo Report Name: Ramsey Carranza Age: 77 Gender: M : 1945 Exam Date: 03/18/2023 15:24 Exam Location: [place] [facility] Ht (in): 74 Wt (lb): 195 Ordering Physician: Doug Teran MD Attending/Referring Phys: Coding Specialist Georgi Carlisle Procedure CPT: Indications: evaluate cardiac output Cardiac Hx: Technical Quality: Contrast 1: Total Dose (mL): Contrast 2: Total Dose (mL): MEASUREMENTS (Male / Female) Normal Values 2D ECHO LV Diastolic Diameter PLAX 6.3 cm 4.2 - 5.9 / 3.9 - 5.3 cm LV Systolic Diameter PLAX 5.7 cm IVS Diastolic Thickness 1.1 cm 0.6 - 1.0 / 0.6 - 0.9 cm LVPW Diastolic Thickness 1.3 cm 0.6 - 1.0 / 0.6 - 0.9 cm LV Relative Wall Thickness 0.4 RV Internal Dim ED PLAX 2.8 cm LVOT Diameter 2.0 cm Aortic Root Diameter 2.8 cm LA Systolic Diameter LX 3.1 cm 3.0 - 4.0 / 2.7 - 3.8 cm LV Diastolic Volume MOD BP 158.7 cm??? 67 - 155 / 56 - 104 cm??? LV Systolic Volume MOD BP 118.1 cm??? - 58 / 19 - 49 cm??? LV Ejection Fraction MOD BP 25.6 % >= 55 % LV Cardiac Index MOD BP 1525.8 cm???/min???m??? LV Diastolic Volume MOD 4C 165.3 cm??? LV Systolic Volume MOD 4C 116.6 cm??? LV Ejection Fraction MOD 4C 29.5 % LV Cardiac Index MOD 4C 1833.0 cm???/min???m??? LV Diastolic Length 4C 9.0 cm LV Systolic Length 4C 9.0 cm LV Diastolic Volume MOD 2C 148.4 cm??? LV Systolic Volume MOD 2C 116.1 cm??? LV Ejection Fraction MOD 2C 21.7 % LV Cardiac Index MOD 2C 1213.1 cm???/min???m??? LV Diastolic Length 2C 8.7 cm LV Systolic Length 2C 8.7 cm LA Volume 76.2 cm??? 18 - 58 / 22 - 52 cm??? LA Volume Index 35.4 cm???/m??? 16 - 28 cm???/m??? Ascending Aorta Diameter 2.8 cm FINDINGS Left Ventricle Severe left ventricular dilatation. Mild concentric left ventricular hypertrophy. Left ventricular ejection fraction is estimated at 20-25 %. Right Ventricle Normal right ventricular size. Right Atrium Normal right atrial size. Left Atrium Moderate left atrial dilatation. LA volume index= 35ml/m2 Mitral Valve Structurally normal mitral valve. Mild MR. Aortic Valve Aortic valve not well visualized. Mild to moderate AV calcification Tricuspid Valve Tricuspid valve not well visualized. Pulmonic Valve Pulmonic valve not well visualized. No pulmonic regurgitation. Pericardium Normal pericardium. Aorta CONCLUSIONS Severe LV systolic dysfunction Previewed by: Dr. Taj Soriano MD (Electronically Signed) Final Date: 18 March 2023 16:25
[2023-03-18] MEDS ORDERED: LACTATED RINGERS 1,000 ML IV SCH (16:30)
[2023-03-18 16:37] LABS: ABG Base Excess -22.2 mmol/L; ABG Oxygen Saturation 99.1 % (94-97); ABG PCO2 26 mmHg (35-45); ABG PO2 189 mmHg (83-108); ABG TCO2 9 mmol/L (19-24); Allen Test Performed? Yes
[2023-03-18 16:39] LABS: ABG HCO3 8 mmol/L (21-25); ABG PH 7.08 (7.35-7.45)
[2023-03-18 17:05] LABS: Anisocytosis Slight; HGB 7.4 gm/dL (13.0-17.5); Hypochromasia Marked; MCH 38.1 pg (25.0-35.0); MCHC 30.7 g/dL (31.0-37.0); Macrocytosis Marked; Mean Platelet Volume 10.6; Platelet Count 468 k/uL (150-450); RBC 1.94 m/uL (4.30-5.90); RDW 16.7 % (11.5-15.5)
[2023-03-18] MEDS: DEXTROSE 5% IN WATER 1,000 ML with SODIUM BICARB (1 MEQ/ML) 150 ML IV SCH ×2 (17:21→20:59)
[2023-03-18] MEDS ORDERED: DEXTROSE 50% SYRINGE 50 ML IVP ONE (18:40)
[2023-03-18 18:45] LABS: Glucose,Whole Blood 22 mg/dL (70-110)
[2023-03-18 18:45] LABS: Glucose,Whole Blood 21 mg/dL (70-110)
[2023-03-18 18:45] LABS: Glucose,Whole Blood 22 mg/dL (70-110)
[2023-03-18 18:55] LABS: Glucose,Whole Blood 200 mg/dL (70-110)
[2023-03-18 20:07] LABS: ABG Base Excess -25.5 mmol/L; ABG Oxygen Saturation 97.9 % (94-97); ABG PCO2 34 mmHg (35-45); ABG PO2 207 mmHg (83-108); ABG TCO2 8 mmol/L (19-24); Allen Test Performed? Yes
[2023-03-18 20:09] LABS: ABG HCO3 7 mmol/L (21-25); ABG PH 6.92 (7.35-7.45)
[2023-03-18 20:13] LABS: Glucose,Whole Blood 93 mg/dL (70-110)
[2023-03-18 20:36] LABS: Anisocytosis Slight; HCT 20.4 % (39.0-53.0); Hypochromasia Marked; MCH 38.4 pg (25.0-35.0); MCV 127.8 fL (80.0-100.0); Macrocytosis Marked; Mean Platelet Volume 11.6; Platelet Count 412 k/uL (150-450); RBC 1.59 m/uL (4.30-5.90); RDW 16.4 % (11.5-15.5); WBC 20.2 k/uL (3.8-10.6)
[2023-03-18 20:41] LABS: HGB 6.1 gm/dL (13.0-17.5)
--- NOTE | 2023-03-18 20:53 | PCN ---
PROCEDURE NOTE PROCEDURE PERFORMED: Right femoral art line. PREOPERATIVE DIAGNOSES: Frequent blood draws and blood gas monitoring, hypotension. POSTOPERATIVE DIAGNOSES: Frequent blood draws and blood gas monitoring, hypotension. TRIMMER OPERATOR THREE KNIFE: Dr. Gallegos. FIRST PLUG ASSEMBLER: Dr. Rina Castillo. We used the right femoral artery. ARTERIAL LINE PLACEMENT: Indications: Hemodynamic monitoring. A time-out was completed verifying correct patient, procedure, site, positioning, and implant(s) or special equipment if applicable. Tato's test was performed to ensure adequate perfusion. The patient's right wrist or right groin was prepped and draped in sterile fashion. 1% Lidocaine was used to anesthetize the area. An 18G [place] arterial line was introduced into the femoral artery. The catheter was threaded over the guide wire and the needle was removed with appropriate pulsatile blood return. Blood loss was minimal. The catheter was then sutured in place to the skin and a sterile dressing applied. Perfusion to the extremity distal to the point of catheter insertion was checked and found to be adequate. There was no major complication. There was good blood return and waveform. The patient tolerated the procedure well. The catheter was sutured in place. A sterile dressing was applied by the nurse. There was no immediate complication. MMODL / IJN: [id number] /
[2023-03-18] MEDS ORDERED: CHLORHEXIDINE GLUCONATE 15 ML CUP MUCOUS MEM SCH (21:00)
[2023-03-18 23:07] LABS: ABG Base Excess -22.8 mmol/L; ABG Oxygen Saturation 99.1 % (94-97); ABG PCO2 34 mmHg (35-45); ABG PO2 203 mmHg (83-108); ABG TCO2 10 mmol/L (19-24); Allen Test Performed? Yes
[2023-03-18 23:08] LABS: ABG HCO3 8 mmol/L (21-25); ABG PH 7.01 (7.35-7.45)
[2023-03-18 23:20] LABS: Glucose,Whole Blood 73 mg/dL (70-110)
[2023-03-19 01:23] VITALS: BP 70/46; TEMP 96.4
[2023-03-19 01:41] LABS: African American GFR (CKD) 19 (>60 ml/min/1.73 sqM); Albumin 2.1 g/dL (3.5-5.0); Alkaline Phosphatase 69 U/L (38-126); Anion Gap 35 mmol/L; Blood Urea Nitrogen 29 mg/dL (9-20); Calcium 7.3 mg/dL (8.4-10.2); Chloride 103 mmol/L (98-107); Glucose 67 mg/dL (74-99); Non-African American GFR(CKD) 17 (>60 ml/min/1.73 sqM); Sodium 143 mmol/L (137-145); Total Bilirubin 1.5 mg/dL (0.2-1.3)
[2023-03-19 01:45] LABS: Carbon Dioxide 5 mmol/L (22-30); Potassium 8.2 mmol/L (3.5-5.1)
[2023-03-19 01:50] LABS: Anisocytosis Moderate; Basophils # (A) 0.2 k/uL (0-0.2); Basophils % (A) 1 %; Eosinophils % (A) 0 %; HCT 22.9 % (39.0-53.0); HGB 7.1 gm/dL (13.0-17.5); Hypochromasia Marked; Lymphocytes # (A) 2.1 k/uL (1.0-4.8); Lymphocytes % (A) 14 %; MCH 36.2 pg (25.0-35.0); MCHC 31.1 g/dL (31.0-37.0); Macrocytosis Marked; Monocytes # (A) 1.1 k/uL (0-1.0); Monocytes % (A) 8 %; Neutrophils # (A) 11.2 k/uL (1.3-7.7); Neutrophils % (A) 74 %; Platelet Count 264 k/uL (150-450); Poikilocytosis Slight; RBC 1.97 m/uL (4.30-5.90); RDW 20.8 % (11.5-15.5); WBC 15.1 k/uL (3.8-10.6)
[2023-03-19 01:52] LABS: MCV 116.5 fL (80.0-100.0)
[2023-03-19] MEDS ORDERED: INSULIN REGULAR 100 UNIT/ML VIAL (IV) IV ONE (01:52)
[2023-03-19] MEDS ORDERED: ALBUTEROL NEBULIZED (CONC) 20 MG, SODIUM CHLORIDE 0.9% NEBULIZ 3 ML INHALATION ONE ×2 (01:53)
[2023-03-19] MEDS ORDERED: DEXTROSE 50% SYRINGE 50 ML IVP STA (01:53)
[2023-03-19] MEDS ORDERED: CALCIUM GLUCONATE IN NACL 1 GM in SALINE 1 100ML.BAG IVPB ONE (01:53)
[2023-03-19] MEDS ORDERED: SODIUM BICARB 8.4% 50 ML SYR (1 MEQ/ML) IV STA (01:53)
[2023-03-19] MEDS ORDERED: ALBUTEROL NEB (CONC) 2.5 MG/0.5 ML INHALATION ONE (02:01)
[2023-03-19 02:14] LABS: Glucose,Whole Blood 69 mg/dL (70-110)
[2023-03-19 02:37] LABS: ALT 9495 U/L (4-49); AST >15000 U/L (17-59)
[2023-03-19 03:20] VITALS: PULSE 0; RESP 0
[2023-03-19] MEDS ORDERED: AZITHROMYCIN 500 MG in SODIUM CHLORIDE 0.9% 250 ML IVPB SCH (09:00)
--- NOTE | 2023-03-21 17:34 | P.DS ---
Providers Date of admission: 03/18/23 08:05 Attending physician: Ivan Grove Consults: 03/18/23 08:04 Consult Physician Urgent Consulting Provider: Rao Gallegos Consult Reason/Comments: Critical care. Do you want consulting provider notified?: Yes Consult Physician Urgent Consulting Provider: Aiden Campbell Consult Reason/Comments: NSTEMI Do you want consulting provider notified?: Yes 03/18/23 16:25 Consult Physician Urgent Consulting Provider: Cielo Wiggins Consult Reason/Comments: RUI Do you want consulting provider notified?: Yes Primary care physician: Alonso Mishra [facility] Course: Patient was admitted in critical condition to the intensive care unit and his been evaluated by critical care team Patient autocad. Prognosis was guarded since admission Please refer to nursing on for more details Please refer to H&P for more details Patient Condition at Discharge: Critical Plan - Discharge Summary New Discharge Prescriptions: No Action Ferrous Sulfate [Feosol] 325 mg PO DAILY Ubidecarenone [Co Q-10] 300 mg PO DAILY glipiZIDE XL [Glucotrol Xl] 5 mg PO HS [place]-3/Dha/Epa/Fish Oil [Fish Oil 1,000 mg Softgel] 1 cap PO BID Rosuvastatin [Crestor] 10 mg PO HS Metoprolol Succinate [Toprol XL] 50 mg PO HS Clopidogrel [Plavix] 75 mg PO DAILY Bumetanide [Bumex] 1 mg PO DAILY HYDROcodone/APAP 7.5-325MG [[place] 7.5-325] 1 tab PO Q6HR PRN PRN Reason: Pain Multivitamins, Thera [Multivitamin (formulary)] 1 tab PO HS Spironolactone 25 mg PO DAILY Isosorbide Mononitrate ER [Imdur] 30 mg PO DAILY metFORMIN HCL [Glucophage] 500 mg PO HS Aspirin 325 mg PO HS Doxycycline [Vibramycin] 100 mg PO BID Albuterol Inhaler [Ventolin Hfa Inhaler] 1 - 2 puff INHALATION RT-Q6H PRN PRN Reason: Shortness Of Breath Discharge Medication List Albuterol Inhaler [Ventolin Hfa Inhaler] 1 - 2 puff INHALATION RT-Q6H PRN 03/18/23 [History] Aspirin 325 mg PO HS 03/18/23 [History] Bumetanide [Bumex] 1 mg PO DAILY 03/18/23 [History] Clopidogrel [Plavix] 75 mg PO DAILY 03/18/23 [History] Doxycycline [Vibramycin] 100 mg PO BID 03/18/23 [History] Ferrous Sulfate [Feosol] 325 mg PO DAILY 03/18/23 [History] HYDROcodone/APAP 7.5-325MG [[place] 7.5-325] 1 tab PO Q6HR PRN 03/18/23 [History] Isosorbide Mononitrate ER [Imdur] 30 mg PO DAILY 03/18/23 [History] Metoprolol Succinate [Toprol XL] 50 mg PO HS 03/18/23 [History] Multivitamins, Thera [Multivitamin (formulary)] 1 tab PO HS 03/18/23 [History] [place]-3/Dha/Epa/Fish Oil [Fish Oil 1,000 mg Softgel] 1 cap PO BID 03/18/23 [History] Rosuvastatin [Crestor] 10 mg PO HS 03/18/23 [History] Spironolactone 25 mg PO DAILY 03/18/23 [History] Ubidecarenone [Co Q-10] 300 mg PO DAILY 03/18/23 [History] glipiZIDE XL [Glucotrol Xl] 5 mg PO HS 03/18/23 [History] metFORMIN HCL [Glucophage] 500 mg PO HS 03/18/23 [History] Follow up Appointment(s)/Referral(s): Suleiman Whitlock MD [REFERRING] - 1-2 days Discharge Disposition: - Preliminary Cause of Preliminary Cause of : covid, bactrtisl pneumonia
== END 2023-03-19 04:48 | disposition expired | DRG 871 ==
LOC: EC 05:11 → 2SICU 08:05
PROVIDERS: ADMIT Hospitalist; ATTEND Hospitalist
PROC: 0BH17EZ Insertion of Endotracheal Airway into Trachea, Via Natural or Artificial Opening (ICD-10-PCS; principal; 2023-03-18)
PROC: 30233N1 Transfusion of Nonautologous Red Blood Cells into Peripheral Vein, Percutaneous Approach (ICD-10-PCS; principal; 2023-03-18)
PROC: 8E0ZXY6 Isolation (ICD-10-PCS; principal; 2023-03-18)
PROC: 3E043XZ Introduction of Vasopressor into Central Vein, Percutaneous Approach (ICD-10-PCS; principal; 2023-03-18)
PROC: 5A1935Z Respiratory Ventilation, Less than 24 Consecutive Hours (ICD-10-PCS; principal; 2023-03-18)
PROC: 06HY33Z Insertion of Infusion Device into Lower Vein, Percutaneous Approach (ICD-10-PCS; principal; 2023-03-18)
PROC: 04HY32Z Insertion of Monitoring Device into Lower Artery, Percutaneous Approach (ICD-10-PCS; 2023-03-18)
PROC: 4A133J1 Monitoring of Arterial Pulse, Peripheral, Percutaneous Approach (ICD-10-PCS; 2023-03-18)
PROC: 4A133B1 Monitoring of Arterial Pressure, Peripheral, Percutaneous Approach (ICD-10-PCS; 2023-03-18)
DX: A41.9 Sepsis, unspecified organism (principal); I21.4 Non-ST elevation (NSTEMI) myocardial infarction; J15.9 Unspecified bacterial pneumonia; R65.21 Severe sepsis with septic shock; U07.1 COVID-19; J96.01 Acute respiratory failure with hypoxia; N17.0 Acute kidney failure with tubular necrosis; E87.21 Acute metabolic acidosis; I11.0 Hypertensive heart disease with heart failure; I50.9 Heart failure, unspecified; R57.0 Cardiogenic shock; D64.9 Anemia, unspecified; I25.10 Atherosclerotic heart disease of native coronary artery without angina pectoris; Z66 Do not resuscitate; F17.200 Nicotine dependence, unspecified, uncomplicated; E11.9 Type 2 diabetes mellitus without complications; E78.5 Hyperlipidemia, unspecified; Z88.0 Allergy status to penicillin; Z79.899 Other long term (current) drug therapy; Z79.84 Long term (current) use of oral hypoglycemic drugs; Z79.82 Long term (current) use of aspirin; Z79.02 Long term (current) use of antithrombotics/antiplatelets
CPT/HCPCS: 31500; 36415; 36556; 36600; 70450; 71045; 80053; 82272; 82805; 83605; 83880; 84484; 85025; 85027; 85610; 85730; 86850; 86900; 86901; 86920; 87040; 87070; 87205; 87636; 93005; 93308; 94002; 94640; 94660; 96365; 96366; 96367; 96368; 96375; 99291